=== PATIENT | female | born 1990 | race Caucasian/White ===

== ENCOUNTER → 2020-11-01 | Outpatient (CLI) | payer OTHER ==
[2014-11-08 17:26] VITALS: BP 115/76
--- NOTE | 2020-11-01 16:22 | RAD ---
EXAM: Pelvic sonogram. HISTORY: Pelvic pain. Rectal bleeding. TECHNIQUE: Sonographic imaging of the pelvis was performed. COMPARISON: None. FINDINGS: The uterus measures 8.2 x 5.7 x 4.2 cm. The endometrial stripe measures 3.9 mm in thickness . The ovaries are normal in size and demonstrate normal blood flow. There is a dominant left ovarian follicle measuring 10 mm. There are multiple nabothian cysts within the cervix. There is no pelvic fr ee fluid. IMPRESSION: 1. Multiple nabothian cysts within the cervix. 2. 10 mm dominant left ovarian follicle. Electronically signed by: Belinda Bhatia MD (11/01/2020 4:20 PM) [id number]
== END ==
LOC: US 15:33
PROVIDERS: ATTEND Obstetrics & Gynecology
DX: N88.8 Other specified noninflammatory disorders of cervix uteri (principal); N83.02 Follicular cyst of left ovary; K62.5 Hemorrhage of anus and rectum
CPT/HCPCS: 76830; 76856

== ENCOUNTER → 2020-11-22 | Outpatient (CLI) | payer OTHER ==
[2014-11-08 17:26] VITALS: BP 115/76
[~2020-11-22] MED LIST: CIDE300T PO; HYDR-2761 PO; MULT-445 PO; MULT-647 PO; PHEN37.53 PO; TOPI25TA7 PO; birth control
== END ==
LOC: LAB 10:05
PROVIDERS: ATTEND Obstetrics & Gynecology
DX: Z01.812 Encounter for preprocedural laboratory examination (principal); Z20.822 Contact with and (suspected) exposure to COVID-19
CPT/HCPCS: U0003

== ENCOUNTER 2020-11-25 08:18 | Day surgery (SDC) | payer OTHER ==
[~2020-11-25 08:18] MED LIST changes: +HYDROmorphone 2 MG/ML VIAL IVP PRN; +IV RINGERS,LACTATED 1000ML 1,000 ML IV SCH; +MORPHINE SULFATE 2 MG/ML VIAL. IVP PRN; +PROCHLORPERAZINE 10 MG/2 ML VIAL. IVP PRN; +ceFAZolin SODIUM IV Push 1 GM VIAL. IVP PRN; +fentaNYL PF VIAL 100 MCG/2 ML VIAL IVP PRN
[2020-11-25] MEDS ORDERED: SEVOFLURANE 31 TO 60 MINUTES. IH ONE (09:43)
[2020-11-25] MEDS ORDERED: MIDAZOLAM HCL/PF 2 MG/2 ML VIAL. ONE (09:43)
[2020-11-25] MEDS ORDERED: NEOSTIGMINE METHYLSULFATE 5 MG/5 ML SYRINGE. ONE (09:43)
[2020-11-25] MEDS ORDERED: ROCURONIUM 50 MG/5 ML VIAL. ONE (09:43)
[2020-11-25] MEDS ORDERED: fentaNYL PF VIAL 100 MCG/2 ML VIAL ONE ×2 (09:43→12:22)
[2020-11-25] MEDS ORDERED: GLYCOPYRROLATE 1 MG/5 ML VIAL. ONE (09:43)
[2020-11-25] MEDS ORDERED: LIDOCAINE 2% PF 5 ML VIAL. ONE (09:44)
[2020-11-25] MEDS ORDERED: ONDANSETRON PF 4 MG/2 ML VIAL. ONE (09:44)
[2020-11-25] MEDS ORDERED: DEXAMETHASONE SOD PHOS 4 MG/ML VIAL ONE (09:44)
[2020-11-25] MEDS ORDERED: PROPOFOL 10 MG/ML (20ML) VIAL. IV ONE (09:44)
[2020-11-25 09:48] LABS: BASO % 1 % (0-3); EOS # 0.3 x10^3/uL (0.0-0.7); EOS % 5 % (0-3); HEMATOCRIT 38.5 % (36.0-47.0); HEMOGLOBIN 13.3 g/dL (12.0-15.5); LYMPH # 1.8 x10^3/uL (1.0-4.8); LYMPH % 26 % (24-48); MEAN CORPUSCULAR HEMOGLOBIN 31 pg (25-35); MEAN CORPUSCULAR HGB CONC 35 g/dL (31-37); MEAN CORPUSCULAR VOLUME 90 fL (79-100); MONO # 0.5 x10^3/uL (0.0-1.1); MONO % 7 % (0-9); NEUT # 4.4 x10^3/uL (1.8-7.7); NEUT % 62 % (31-73); PLATELET COUNT 238 x10^3/uL (140-400); RED CELL DISTRIBUTION WIDTH 12.8 % (11.5-14.5)
[2020-11-25] MEDS ORDERED: BUPIVACAINE-EPI 0.25% 30 ML VIAL KIT. ONE (11:06)
[2020-11-25] MEDS ORDERED: SURGICEL HEMOSTAT 4X8 EACH. ONE (11:06)
--- NOTE | 2020-11-25 11:54 | PDOC ---
BRIEF OPERATIVE NOTE Date: Nov 25, 2020 Pre-Op Diagnosis 1. Chronic Pelvic Pain 2. Dysmenorrhea Post-Op Diagnosis Same Procedure Performed Dx [facility] Surgeon Dr. Sellers Optomechanical Engineer Cardiovascular Disease Specialist: Javier Anesthesia Type: General Blood Loss 5 ml Specimens Obtained none Findings nml size uterus, nml fallopian tubes and ovaries robert., no evidence endometriosis, enlarged IP venous Complications none Operative Note see dictation KIM SELLERS Jr, MD Nov 25, 2020 11:54
--- NOTE | 2020-11-25 11:55 | DISCH ---
DISCHARGE INSTRUCTIONS Condition on Discharge Condition on Discharge: Stable Activity After Discharge Activity Instructions for Disc: Activity as tolerated Lifting Instructions after Dis: No heavy lifting Driving Instructions after Dis: Do not drive today Diet after Discharge Diet after Discharge: Regular Contacting the DRAbril after DC Call your doctor for: Concerns you may have Follow-Up Follow up with: Dr. Hargrove in 1 week KIM HARGROVE Jr, MD Nov 25, 2020 11:55
[2020-11-25] MEDS ORDERED: oxyCODONE/APAP 5/325 1 TAB TABLET PO ONE ×2 (12:15)
--- NOTE | 2020-11-25 12:23 | OP ---
DATE OF SURGERY: PREOPERATIVE DIAGNOSES: 1. Chronic pelvic pain. 2. Dysmenorrhea. POSTOPERATIVE DIAGNOSES: 1. Chronic pelvic pain. 2. Dysmenorrhea. PROCEDURE: Diagnostic laparoscopy. SURGEON: Kim Sellers MD LIVESTOCK SALES REPRESENTATIVE: Javier. ANESTHESIA: GETA. ESTIMATED BLOOD LOSS: Less than 5 mL. COMPLICATIONS: None. FINDINGS: Normal size uterus, normal fallopian tubes and ovaries bilaterally. No evidence of endometriosis. Enlarged infundibulopelvic venous system bilaterally. SUMMARY: A 30-year-old female with greater than 1-year history of dysmenorrhea and chronic pelvic pain, unresponsive to oral contraceptive pills, requiring laparoscopy for possible resection of endometriosis. She was counseled on risks, benefits and expectations and voiced clear understanding to proceed. DESCRIPTION OF PROCEDURE: The patient was taken to surgery suite and placed in dorsal lithotomy position. She was prepped with Betadine solution for vaginal prep and ChloraPrep for abdominal prep. After adequate anesthesia, bivalve speculum was placed vaginally. Anterior lip of the cervix grasped with single tooth tenaculum. The uterine acorn manipulator was then placed. The bivalve speculum was removed. Attention was now placed on abdomen. Small transverse skin incision was made just below the umbilicus with a scalpel. The Veress needle was then placed through the infundibulopelvic incision. The abdomen was allowed to insufflate up to 1-1/2 liters CO2 gas. The Veress needle was then removed, 5 mm trocar was placed. The scope was positioned. Uterus appeared normal. Fallopian tubes and ovaries appeared normal. There was no evidence of endometriosis. 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 Second incision was made in the left lower quadrant in which 5 mm trocar was placed. Further exploration of the fallopian tubes and posterior cul-de-sac and broad ligament was evaluated and no evidence of any endometriosis was seen. Suction irrigation was utilized. A small amount of normal saline was left in posterior cul-de-sac. The trocars were then removed under direct visualization. Abdomen was allowed to deflate as much as possible along with mechanical manipulation. The two skin incisions were reapproximated using 4-0 Vicryl suture in subcuticular manner. A 0.25% Marcaine with epinephrine was injected at each incision site. The uterine acorn manipulator and single tooth tenaculum were then removed. The patient tolerated the procedure well and was taken to recovery room in stable condition. Sponge and needle count correct x 3. KIM SELLERS MD DR: MITZI/sigrid JOB#: [id number] / [id number]
[2020-11-25] MEDS ORDERED: PROCHLORPERAZINE 10 MG/2 ML VIAL. ONE (12:24)
[2020-11-25] MEDS: fentaNYL PF VIAL 100 MCG/2 ML VIAL IVP PRN ×2 (12:25→12:52)
[2020-11-25 12:57] VITALS: BP 128/80
== END 2020-11-25 13:32 | disposition home or self-care (01) ==
LOC: SURG 08:18
PROVIDERS: ATTEND Obstetrics & Gynecology
DX: G89.29 Other chronic pain (principal); R10.2 Pelvic and perineal pain; N94.6 Dysmenorrhea, unspecified; I10 Essential (primary) hypertension; F41.9 Anxiety disorder, unspecified; F32.9 Major depressive disorder, single episode, unspecified; Z79.899 Other long term (current) drug therapy; Z98.890 Other specified postprocedural states
CPT/HCPCS: 36415; 49320; 81025; 85025; J0690; J0780; J1100; J2250; J2405; J2704; J2710; J3010; J3490; J7120

== ENCOUNTER → 2021-02-21 | Outpatient (CLI) | payer OTHER ==
[~2021-02-21] MED LIST changes: +CHOL2400 MC; +CYAN25008 PO; -HYDROmorphone 2 MG/ML VIAL IVP PRN; -IV RINGERS,LACTATED 1000ML 1,000 ML IV SCH; +LISI10TA16 PO; +MELO15TA23 PO; -MORPHINE SULFATE 2 MG/ML VIAL. IVP PRN; -PROCHLORPERAZINE 10 MG/2 ML VIAL. IVP PRN; -ceFAZolin SODIUM IV Push 1 GM VIAL. IVP PRN; -fentaNYL PF VIAL 100 MCG/2 ML VIAL IVP PRN
== END ==
LOC: LAB 10:14
PROVIDERS: ATTEND Obstetrics & Gynecology
DX: Z01.812 Encounter for preprocedural laboratory examination (principal); R10.2 Pelvic and perineal pain; Z20.822 Contact with and (suspected) exposure to COVID-19
CPT/HCPCS: U0003; U0005

== ENCOUNTER 2021-02-24 06:21 | Observation (INO) | payer OTHER ==
[~2021-02-24] VITALS: Ht 160 cm; Wt 89.4 kg
[2021-02-24] VITALS (12 sets, daily range): BP systolic 106–161; BP diastolic 69–99
[~2021-02-24 06:21] MED LIST changes: +HYDROmorphone 2 MG/ML VIAL IVP PRN; +IV RINGERS,LACTATED 1000ML 1,000 ML IV SCH; +PROCHLORPERAZINE 10 MG/2 ML VIAL. IVP PRN; +fentaNYL PF VIAL 100 MCG/2 ML VIAL IVP PRN
[2021-02-24] MEDS ORDERED: SCOPOLAMINE 1.5MG PATCH. TD ONE (07:30)
[2021-02-24 07:32] LABS: BASO # 0.1 x10^3/uL (0.0-0.2); BASO % 1 % (0-3); EOS # 0.3 x10^3/uL (0.0-0.7); EOS % 3 % (0-3); HEMOGLOBIN 14.1 g/dL (12.0-15.5); LYMPH # 1.7 x10^3/uL (1.0-4.8); LYMPH % 20 % (24-48); MEAN CORPUSCULAR HEMOGLOBIN 31 pg (25-35); MEAN CORPUSCULAR HGB CONC 34 g/dL (31-37); MEAN CORPUSCULAR VOLUME 90 fL (79-100); MONO # 0.6 x10^3/uL (0.0-1.1); MONO % 7 % (0-9); NEUT # 6.2 x10^3/uL (1.8-7.7); NEUT % 70 % (31-73); PLATELET COUNT 247 x10^3/uL (140-400); RED BLOOD COUNT 4.55 x10^6/uL (3.50-5.40); RED CELL DISTRIBUTION WIDTH 12.8 % (11.5-14.5); WHITE BLOOD COUNT 8.8 x10^3/uL (4.0-11.0)
[2021-02-24] MEDS ORDERED: PROPOFOL 10 MG/ML (20ML) VIAL. IV ONE (07:56)
[2021-02-24] MEDS ORDERED: LIDOCAINE 2% PF 5 ML VIAL. ONE (07:56)
[2021-02-24] MEDS ORDERED: fentaNYL PF VIAL 100 MCG/2 ML VIAL ONE ×4 (07:56→10:02)
[2021-02-24] MEDS ORDERED: SUCCINYLCHOLINE 200 MG/10 ML VIAL. ONE (07:57)
[2021-02-24] MEDS ORDERED: ROCURONIUM 50 MG/5 ML VIAL. ONE (07:57)
[2021-02-24] MEDS ORDERED: SURGICEL HEMOSTAT 4X8 EACH. ONE (08:01)
[2021-02-24] MEDS ORDERED: BUPIVACAINE-EPI 0.25% 30 ML VIAL KIT. ONE (08:01)
[2021-02-24] MEDS ORDERED: ESTROGENS, CONJ VAGINAL CREAM 30GM TUBE. ONE (08:01)
[2021-02-24] MEDS ORDERED: LIDOCAINE 1%/EPI 1:100,000 20 ML VIAL. ONE (08:02)
[2021-02-24] MEDS ORDERED: INDIGOTINDISULFONATE SODIUM 40 MG/5 ML AMPUL. ONE (08:02)
[2021-02-24] MEDS ORDERED: DEXAMETHASONE SOD PHOS 4 MG/ML VIAL ONE (08:22)
[2021-02-24] MEDS ORDERED: NEOSTIGMINE METHYLSULFATE 5 MG/5 ML SYRINGE. ONE (08:34)
[2021-02-24] MEDS ORDERED: GLYCOPYRROLATE 1 MG/5 ML VIAL. ONE (08:34)
[2021-02-24] MEDS ORDERED: ONDANSETRON PF 4 MG/2 ML VIAL. ONE (08:34)
[2021-02-24] MEDS ORDERED: ATROPINE 1 MG/10 ML DISP.SYRINGE. ONE (08:43)
[2021-02-24] MEDS ORDERED: KETOROLAC 30 MG/ML VIAL. ONE (09:20)
--- NOTE | 2021-02-24 09:46 | PDOC ---
BRIEF OPERATIVE NOTE Date: February 24, 2021 Pre-Op Diagnosis 1. CPP 2. Dysmenorrhea 3. Dyspareunia Post-Op Diagnosis Same Procedure Performed [facility] Surgeon Dr. Sellers Car Repair Supervisor Corporate Security Officer: Corinna Anesthesia Type: General Blood Loss 50 ml Specimens Obtained cervix, uterus, robert. fallopian tubes Findings enlarged uterus, nml fallopian tubes and ovaries roebrt. Complications none Operative Note see dictation KIM SELLERS Jr, MD February 24, 2021 09:45
[2021-02-24] MEDS ORDERED: ONDANSETRON PF 4 MG/2 ML VIAL. IV PRN (10:00)
[2021-02-24] MEDS ORDERED: SIMETHICONE 80 MG TAB.CHEW PO PRN (10:00)
[2021-02-24] MEDS ORDERED: DEXTROSE 50% 25 GM / 50ML DISP.SYRIN. IV PRN (10:00)
[2021-02-24] MEDS ORDERED: 0.9 % SODIUM CHLORIDE 10 ML DISP.SYRIN. IV PRN (10:00)
[2021-02-24] MEDS ORDERED: diphenhydrAMINE HCL 25 MG CAPSULE PO PRN (10:00)
[2021-02-24] MEDS ORDERED: PROCHLORPERAZINE 10 MG/2 ML VIAL. IV PRN (10:00)
[2021-02-24] MEDS ORDERED: diphenhydrAMINE 50 MG/ML VIAL IV PRN (10:00)
[2021-02-24] MEDS ORDERED: CALCIUM CARBONATE 500 MG TAB.CHEW PO PRN (10:00)
[2021-02-24] MEDS: fentaNYL PF VIAL 100 MCG/2 ML VIAL IVP PRN ×2 (10:03→10:16)
[2021-02-24] MEDS ORDERED: PROCHLORPERAZINE 10 MG/2 ML VIAL. ONE (10:15)
[2021-02-24] MEDS ORDERED: MORPHINE SULFATE 2 MG/ML VIAL. ONE (10:25)
[2021-02-24] MEDS: MORPHINE SULFATE 2 MG/ML VIAL. IVP PRN ×2 (10:28→10:38)
--- NOTE | 2021-02-24 10:32 | OP ---
DATE OF SURGERY: 02/24/2021 PREOPERATIVE DIAGNOSES: 1. Chronic pelvic pain. 2. Dysmenorrhea. 3. Dyspareunia. POSTOPERATIVE DIAGNOSES: 1. Chronic pelvic pain. 2. Dysmenorrhea. 3. Dyspareunia. PROCEDURE: LAVH. SURGEON: Dr. Sellers. ASSOCIATE ARTISTIC DIRECTOR: Corinna. ANESTHESIA: GETA. ESTIMATED BLOOD LOSS: 50 mL. COMPLICATIONS: None. FINDINGS: Enlarged uterus, normal fallopian tubes and ovaries bilaterally. SUMMARY: A 30-year-old female with long history of chronic pelvic pain, dysmenorrhea and dyspareunia, requiring surgical management to perform LAVH. She was counseled on the risks, benefits and expectations and voiced a clear understanding to proceed. DESCRIPTION OF PROCEDURE: The patient was taken to surgery suite and placed in dorsal lithotomy position. She was prepped with Betadine solution for vaginal prep and ChloraPrep for abdominal prep. After adequate anesthesia, bivalve speculum was placed vaginally. Anterior lip of the cervix grasped with a single tooth tenaculum. Valtchev uterine manipulator was then placed. The bivalve speculum was removed. Attention was now placed on the abdomen. A small transverse skin incision was made just below umbilicus with the scalpel. The Veress needle was then placed through the infraumbilical incision site. The abdomen was insufflated up to 1-1/2 liters of CO2 gas. The Veress needle was then removed. A 5 mm trocar was placed. Scope was positioned. Uterus was enlarged. The fallopian tubes and ovaries appeared normal bilaterally. Two additional incisions was made in the left lower quadrant with a scalpel which 5 mm trocars were placed with aid of EnSeal and grasper. The right round ligament was coagulated and dissected. The right fallopian tube was coagulated and dissected from the pelvic sidewall. The right broad ligament was coagulated and dissected down to and including the right uterine artery. Same process took place to the left adnexa. We then proceeded vaginally. Weighted speculum and curved Bartley were placed vaginally. The Valtchev uterine manipulator and single tooth tenaculum were removed. Allegra clamps were placed in the anterior and posterior lip of the cervix. The cervix was then injected with lidocaine 1% with epinephrine in a circumferential manner. Bovie cautery was used to allow to circumscribe the cervix. The vaginal mucosa was dissected away from the lower uterine segment using moist Ray-Franck. The parametrial tissue was clamped bilaterally, cut and suture ligated and the cardinal ligaments and uterosacral ligaments were clamped bilaterally, cut, and suture ligated. Uterus was then retroverted. There was one additional pedicle on the right side that was clamped, cut and suture ligated. The cervix, uterus, bilateral fallopian tubes were then removed. A modified Casillas's culdoplasty incorporating the uterosacral ligaments were performed using 0 Vicryl suture. The remainder of the vaginal cuff was reapproximated using 2-0 Vicryl suture in a [id number] manner. Moist vaginal packing was placed. We then proceeded abdominally. Abdomen was insufflated with CO2 gas once again. The scope was positioned and the vaginal cuff was visualized and hemostatic, was verified with suction irrigation. A small amount of normal saline was left in the posterior cul-de-sac. The trocars were then removed under direct visualization. The abdomen was allowed to deflate as much as possible along with mechanical manipulation. Three skin incisions were reapproximated with 4-0 Vicryl suture in a subcuticular manner. 0.25% Marcaine with epinephrine was injected in each incision site. The patient tolerated the procedure well and was taken to recovery room in stable condition. Sponge and needle count correct x 3. ARCELIA DR: Macy TID: [id number]
[2021-02-24] MEDS ORDERED: OPIUM/BELLADONNA 30/16.2MG SUPP.RECT. PR PRN (12:00)
[2021-02-24] MEDS: oxyCODONE/APAP 5/325 1 TAB TABLET PO PRN ×3 (14:01→22:02)
[2021-02-24] MEDS: GABAPENTIN 300 MG CAPSULE. PO SCH ×2 (14:01→22:01)
[2021-02-24] MEDS: KETOROLAC 30 MG/ML VIAL. IV PRN (20:03)
[2021-02-24] MEDS: ZOLPIDEM 5 MG TABLET. PO PRN (22:02)
[2021-02-25] MEDS: ZOLPIDEM 5 MG TABLET. PO PRN (02:06)
[2021-02-25] MEDS: oxyCODONE/APAP 5/325 1 TAB TABLET PO PRN ×3 (02:06→13:24)
[2021-02-25] MEDS: KETOROLAC 30 MG/ML VIAL. IV PRN (02:07)
[2021-02-25 02:12] VITALS: BP 112/72
[2021-02-25] MEDS: GABAPENTIN 300 MG CAPSULE. PO SCH ×2 (06:29→14:23)
[2021-02-25 06:30] VITALS: BP 128/78
[2021-02-25 07:32] LABS: BASO % 0 % (0-3); EOS % 0 % (0-3); HEMATOCRIT 38.5 % (36.0-47.0); HEMOGLOBIN 12.8 g/dL (12.0-15.5); LYMPH # 1.6 x10^3/uL (1.0-4.8); LYMPH % 12 % (24-48); MEAN CORPUSCULAR HEMOGLOBIN 31 pg (25-35); MEAN CORPUSCULAR HGB CONC 33 g/dL (31-37); MEAN CORPUSCULAR VOLUME 92 fL (79-100); MONO # 0.8 x10^3/uL (0.0-1.1); MONO % 6 % (0-9); NEUT # 10.6 x10^3/uL (1.8-7.7); NEUT % 81 % (31-73); PLATELET COUNT 264 x10^3/uL (140-400); RED BLOOD COUNT 4.18 x10^6/uL (3.50-5.40); RED CELL DISTRIBUTION WIDTH 12.9 % (11.5-14.5); WHITE BLOOD COUNT 13.2 x10^3/uL (4.0-11.0)
[2021-02-25 07:50] VITALS: BP 122/85
--- NOTE | 2021-02-25 08:28 | PDOC ---
SURGICAL PROGRESS NOTE DATE: 02/25/21 TIME: 08:26 Subjective Pt. feeling well. Pain controlled. She is tolerating regular diet, ambulating and pass flatus. Vital Signs Vital Signs Date Time Temp Pulse Resp B/P (MAP) Pulse Ox O2 Delivery O2 Flow Rate FiO2 02/25/21 07:50 98.6 109 20 122/85 (97) 98 Room Air 98.6 02/25/21 02:12 2.0 I&O Intake and Output 02/25/21 07:00 Intake Total 2150 ml Output Total 2350 ml Balance -200 ml Intake Oral 1000 ml IV Total 1150 ml Output Urine Total 2300 ml Estimated Blood Loss 50 ml PATIENT HAS A COLBERT: No General: Alert, Oriented X3, Cooperative HEENT: Atraumatic Lungs: Clear to auscultation Heart: Regular rate Abdomen: Normal bowel sounds, Soft, No tenderness, No masses Neuro: Normal gait Psych/Mental Status: Mental status NL Labs Laboratory Tests Test 02/24/21 06:00 02/24/21 07:00 02/25/21 06:45 Bedside Urine HCG, Qualitative Hcg negative (Negative) White Blood Count 8.8 x10^3/uL (4.0-11.0) 13.2 x10^3/uL (4.0-11.0) Red Blood Count 4.55 x10^6/uL (3.50-5.40) 4.18 x10^6/uL (3.50-5.40) Hemoglobin 14.1 g/dL (12.0-15.5) 12.8 g/dL (12.0-15.5) Hematocrit 41.0 % (36.0-47.0) 38.5 % (36.0-47.0) Mean Corpuscular Volume 90 fL (79-100) 92 fL (79-100) Mean Corpuscular Hemoglobin 31 pg (25-35) 31 pg (25-35) Mean Corpuscular Hemoglobin Concent 34 g/dL (31-37) 33 g/dL (31-37) Red Cell Distribution Width 12.8 % (11.5-14.5) 12.9 % (11.5-14.5) Platelet Count 247 x10^3/uL (140-400) 264 x10^3/uL (140-400) Neutrophils (%) (Auto) 70 % (31-73) 81 % (31-73) Lymphocytes (%) (Auto) 20 % (24-48) 12 % (24-48) Monocytes (%) (Auto) 7 % (0-9) 6 % (0-9) Eosinophils (%) (Auto) 3 % (0-3) 0 % (0-3) Basophils (%) (Auto) 1 % (0-3) 0 % (0-3) Neutrophils # (Auto) 6.2 x10^3/uL (1.8-7.7) 10.6 x10^3/uL (1.8-7.7) Lymphocytes # (Auto) 1.7 x10^3/uL (1.0-4.8) 1.6 x10^3/uL (1.0-4.8) Monocytes # (Auto) 0.6 x10^3/uL (0.0-1.1) 0.8 x10^3/uL (0.0-1.1) Eosinophils # (Auto) 0.3 x10^3/uL (0.0-0.7) 0.0 x10^3/uL (0.0-0.7) Basophils # (Auto) 0.1 x10^3/uL (0.0-0.2) 0.0 x10^3/uL (0.0-0.2) Laboratory Tests Test 02/25/21 06:45 White Blood Count 13.2 x10^3/uL (4.0-11.0) Red Blood Count 4.18 x10^6/uL (3.50-5.40) Hemoglobin 12.8 g/dL (12.0-15.5) Hematocrit 38.5 % (36.0-47.0) Mean Corpuscular Volume 92 fL (79-100) Mean Corpuscular Hemoglobin 31 pg (25-35) Mean Corpuscular Hemoglobin Concent 33 g/dL (31-37) Red Cell Distribution Width 12.9 % (11.5-14.5) Platelet Count 264 x10^3/uL (140-400) Neutrophils (%) (Auto) 81 % (31-73) Lymphocytes (%) (Auto) 12 % (24-48) Monocytes (%) (Auto) 6 % (0-9) Eosinophils (%) (Auto) 0 % (0-3) Basophils (%) (Auto) 0 % (0-3) Neutrophils # (Auto) 10.6 x10^3/uL (1.8-7.7) Lymphocytes # (Auto) 1.6 x10^3/uL (1.0-4.8) Monocytes # (Auto) 0.8 x10^3/uL (0.0-1.1) Eosinophils # (Auto) 0.0 x10^3/uL (0.0-0.7) Basophils # (Auto) 0.0 x10^3/uL (0.0-0.2) Assessment/Plan A: POD#1 s/p LAVH P: D/c home. Justicifation of Admission Dx: Justifications for Admission: Justification of Admission Dx: Yes KIM CASTELLON Jr, MD February 25, 2021 08:28
[2021-02-25] MEDS ORDERED: IBUP-1060 PO (08:31)
[2021-02-25] MEDS ORDERED: ONDA4TAB7 PO (08:31)
[2021-02-25] MEDS ORDERED: DOCU-109 PO (08:31)
[2021-02-25] MEDS ORDERED: OXYC1TAB15 PO (08:31)
--- NOTE | 2021-02-25 08:32 | DISCH ---
DISCHARGE INSTRUCTIONS Condition on Discharge Condition on Discharge: Stable Activity After Discharge Activity Instructions for Disc: Activity as tolerated Lifting Instructions after Dis: No heavy lifting Driving Instructions after Dis: No driving for 2 weeks Diet after Discharge Diet after Discharge: Regular Contacting the DRAbril after DC Call your doctor for: Concerns you may have Follow-Up Follow up with: Dr. Sellers in 2 weeks KIM SELLERS Jr, MD February 25, 2021 08:31
[2021-02-25 13:30] VITALS: BP 136/98
--- NOTE | 2021-02-26 02:12 | PATHOLOGY ---
[facility] Accession Number: [id number] . 01 Material submitted: . uterus - UTERUS,BILATERAL TUBES, CERVIX. Modifiers: BILATERAL TUBES, CERVIX . 01 Clinical history: . CHRONIC PELVIC PAIN, DYSMENORRHEA, DYSPAREUNIA LAVLT . 02 Diagnosis: "Uterus, bilateral tubes, cervix", hysterectomy and bilateral salpingectomy: - Cervix with acute and chronic cervicitis and squamous metaplasia. - Endometrium with weakly proliferative to inactive pattern showing endogenous or exogenous progestational drug effect. - Myometrium with superficial adenomyosis. - Fallopian tubes, bilateral, with paratubal cysts. (CLW:neal; 02/25/2021) [facility] 02/25/2021 1743 Local . 02 Electronically signed: . Helene Pierre MD, Pathologist NPI- [id number] . 01 Gross description: . Labeled: Uterus bilateral tubes, cervix Specimen received: in formalin Specimen received as uterus cervix with attached bilateral symmetrical fimbriated fallopian tubes Uterus weight: 110 gm Uterus: 9.5 x 5 x 4.2 cm Serosa: pink-linares and inked as anterior blue and posterior black 3 gm fimbriated Right fallopian tube: 6 cm in length, 0.7 cm in diameter Right fallopian tube appearance: Remarkable only for paratubal cyst measuring up to 0.6 cm 3 gm fimbriated Left fallopian tube: 6.2 cm in length, 0.6 cm in diameter Left fallopian tube appearance: Remarkable only for paratubal cyst measuring up to 0.3 cm. Ectocervix: Focally congested Cervical os: patent, measuring 0.5 cm Endocervical canal: squamo-columnar junction visualized Endometrial cavity: 5 x 2.7 cm Endometrial thickness: 0.2 cm Myometrial thickness: 3.5 cm trabecular, without nodules Lesions/abnormalities: None . Postdoctoral Scholar sections are submitted as follows: A1-A2 right fallopian tube A3-A4 left fallopian tube A5 anterior cervix A6 posterior cervix A7-anterior endomyometrium A8-posterior endomyometrium ([facility]; 02/24/2021) PETE/PETE 02/26/2021 0125 Local . 02 Pathologist provided ICD-10: N72, N80.0, N83.8 . 02 CPT . 103149 Specimen Comment: A courtesy copy of this report has been sent to [phone] Specimen Comment: Report sent to Performed at: [address] [facility] [id number] MD Arthur Andrews MD Phone: [phone] Performed at: [facility] [address] [id number] MD Helene Pierre MD Phone: [phone]
== END 2021-02-25 14:50 | disposition home or self-care (01) ==
LOC: SURG 06:21 → 3 SO LND 09:46
PROVIDERS: ADMIT Obstetrics & Gynecology; ATTEND Obstetrics & Gynecology
DX: N94.6 Dysmenorrhea, unspecified (principal); N94.10 Unspecified dyspareunia; R10.2 Pelvic and perineal pain
CPT/HCPCS: 36415; 58552; 81025; 85025; 86850; 86900; 86901; 88307; 96374; 96376; A4314; A4930; G0378; G0379; J0330; J0461; J0690; J0780; J1100; J1885; J2270; J2405; J2704; J2710; J3010; J3490; A4657